=== PATIENT | female | born 1975 | race Caucasian/White ===

== ENCOUNTER 2018-01-28 02:17 | Inpatient (IN) | payer BC ==
[2018-01-28] MEDS ORDERED: ACETAMINOPHEN 325 MG TAB PO (03:00)
[2018-01-28] MEDS ORDERED: morphine 2 MG INJ IV (03:00)
[2018-01-28] MEDS ORDERED: NITROGLYCERIN (SL) 0.4 MG TAB SL (03:00)
[2018-01-28] MEDS: METOPROLOL 25 MG TAB PO ×3 (03:12→20:43)
[2018-01-28 03:25] LABS: ADD MAN DIFF? NO
[2018-01-28 03:41] LABS: HEMOGLOBIN A1C 5.3 % (0-5.9)
[2018-01-28 03:42] LABS: WHITE BLOOD COUNT 7.7 10^3/ul (4.8-10.8)
[2018-01-28 03:42] LABS: BASOPHILS % 0.5 % (0.0-2.0); EOSINOPHILS % 0.5 % (0.0-7.0); HEMATOCRIT 34.6 % (37.0-47.0); HEMOGLOBIN 11.4 g/dl (12.0-16.0); LYMPHOCYTES # 2.1 10^3/ul (0.8-2.9); MEAN CORPUSCULAR HEMOGLOBIN 29.2 pg (29.0-33.0); MEAN CORPUSCULAR HGB CONC 32.9 g/dl (32.0-37.0); MEAN CORPUSCULAR VOLUME 88.7 fl (82.0-101.0); MONOCYTE # 0.7 10^3/ul (0.3-0.9); MONOCYTES % 8.4 % (0.0-11.0); NEUTROPHIL # 4.9 10^3/ul (1.6-7.5); NEUTROPHILS % 63.5 % (39.0-77.0); PLATELET COUNT 243 10^3/UL (140-415)
[2018-01-28 03:51] LABS: ALANINE AMINOTRANSFERASE 30 IU/L (13-69); ALBUMIN 4.7 g/dl (3.3-4.9); ALBUMIN/GLOBULIN RATIO 1.51; ALKALINE PHOSPHATASE 44 IU/L (42-121); ANION GAP 15 (8-16); ASPARTATE AMINO TRANSFERASE 21 IU/L (15-46); BILIRUBIN,INDIRECT 0.1 mg/dl (0-1.1); BILIRUBIN,TOTAL 0.1 mg/dl (0.2-1.3); BLOOD UREA NITROGEN 9 mg/dl (7-20); CALCIUM 9.4 mg/dl (8.4-10.2); CARBON DIOXIDE 25 mmol/L (21-31); CHLORIDE 107 mmol/L (97-110); CHOL/HDL RATIO 3.1 RATIO; CHOLESTEROL 201 mg/dl (100-200); CREATININE 0.64 mg/dl (0.44-1.00); GLUCOSE 97 mg/dl (70-220); HDL CHOLESTEROL 63 mg/dl (34-88); LDL CHOLESTEROL,CALCULATED 121 mg/dl; MAGNESIUM 1.8 mg/dl (1.7-2.5); PHOSPHORUS 4.6 mg/dl (2.5-4.9); POTASSIUM 3.7 mmol/L (3.5-5.1); SODIUM 143 mmol/L (135-144); TOTAL PROTEIN 7.8 g/dl (6.1-8.1); TRIGLYCERIDES 83 mg/dl (0-149)
[2018-01-28 04:02] LABS: TROPONIN-I < 0.012 ng/ml (0.00-0.12)
[2018-01-28] MEDS: ASPIRIN 81 MG TAB PO (08:10)
[2018-01-28] MEDS: HEPARIN 5,000 UNIT/0.5 ML VIAL SC ×2 (08:13→20:42)
[2018-01-28 10:00] LABS: TROPONIN-I < 0.012 ng/ml (0.00-0.12)
[2018-01-28 10:23] LABS: FREE T4 (FREE THYROXINE) 0.92 ng/dl (0.64-1.79)
[2018-01-28 11:34] LABS: FREE T3 4.42 pg/ml (2.77-5.27)
[2018-01-28 11:35] LABS: T4 (THYROXINE) 6.8 ug/dl (5.5-11.0)
[2018-01-28 11:47] LABS: TRIIODOTHYRONINE 1.24 ng/ml (0.97-1.69)
[2018-01-28] MEDS: PANTOPRAZOLE 40 MG INJ IV (12:31)
[2018-01-28] MEDS ORDERED: LACTULOSE 30ML CUP PO (13:00)
[2018-01-28 13:53] LABS: TROPONIN-I < 0.012 ng/ml (0.00-0.12)
[2018-01-28] MEDS: ATORVASTATIN 40 MG TAB PO (20:41)
[2018-01-29] MEDS: PANTOPRAZOLE 40 MG INJ IV (05:39)
[2018-01-29] MEDS: ASPIRIN 81 MG TAB PO (09:29)
[2018-01-29] MEDS: METOPROLOL 25 MG TAB PO ×2 (09:30→21:42)
[2018-01-29] MEDS: HEPARIN 5,000 UNIT/0.5 ML VIAL SC ×2 (09:33→21:00)
[2018-01-29] MEDS: ACET/BUTAL/CAFF TAB PO (14:58)
[2018-01-29] MEDS: ATORVASTATIN 40 MG TAB PO (21:41)
[2018-01-30] MEDS: PANTOPRAZOLE 40 MG INJ IV (05:47)
[2018-01-30 06:36] LABS: ADD MAN DIFF? NO
[2018-01-30 06:39] LABS: BASOPHILS % 0.7 % (0.0-2.0); EOSINOPHILS # 0.1 10^3/ul (0.0-0.5); EOSINOPHILS % 1.9 % (0.0-7.0); HEMOGLOBIN 12.4 g/dl (12.0-16.0); LYMPHOCYTES # 2.2 10^3/ul (0.8-2.9); LYMPHOCYTES % 40.8 % (15.0-51.0); MEAN CORPUSCULAR HEMOGLOBIN 29.5 pg (29.0-33.0); MEAN CORPUSCULAR HGB CONC 33.5 g/dl (32.0-37.0); MEAN CORPUSCULAR VOLUME 88.1 fl (82.0-101.0); MEAN PLATELET VOLUME 10.1 fl (7.4-10.4); MONOCYTE # 0.5 10^3/ul (0.3-0.9); MONOCYTES % 9.4 % (0.0-11.0); NEUTROPHIL # 2.5 10^3/ul (1.6-7.5); PLATELET COUNT 278 10^3/UL (140-415); RED CELL DISTRIBUTION WIDTH 12.6 % (11.5-14.5)
[2018-01-30 06:39] LABS: WHITE BLOOD COUNT 5.3 10^3/ul (4.8-10.8)
[2018-01-30 07:01] LABS: ANION GAP 18 (8-16); BLOOD UREA NITROGEN 19 mg/dl (7-20); CALCIUM 9.7 mg/dl (8.4-10.2); CARBON DIOXIDE 24 mmol/L (21-31); CHLORIDE 105 mmol/L (97-110); CREATININE 0.74 mg/dl (0.44-1.00); GLUCOSE 95 mg/dl (70-220); SODIUM 143 mmol/L (135-144)
[2018-01-30] MEDS: METOPROLOL 25 MG TAB PO (08:57)
[2018-01-30] MEDS: ASPIRIN 81 MG TAB PO (08:57)
[2018-01-30] MEDS: HEPARIN 5,000 UNIT/0.5 ML VIAL SC (09:03)
== END 2018-01-30 14:30 | disposition home or self-care (01) | DRG 313 ==
LOC: TEL 02:17
PROVIDERS: Internal Medicine
DX: R07.89 Other chest pain (principal); E78.5 Hyperlipidemia, unspecified; R51 Headache; I51.89 Other ill-defined heart diseases; I95.9 Hypotension, unspecified
CPT/HCPCS: 70450; 80048; 80053; 80061; 83036; 83735; 84100; 84436; 84439; 84443; 84480; 84481; 84484; 85025; 93005; 93306